=== PATIENT | female | born 1935 | race Caucasian/White ===

== ENCOUNTER 2019-10-12 08:53 | Outpatient (CLI) | payer MEDICARE, OTHER, SELFPAY ==
[2019-10-07 11:28] VITALS: BMI 39.6
[2019-10-12] VITALS (8 sets, daily range): BP systolic 158–180; BP diastolic 66–93; PULSE 65–76; RESP 20; O2SAT 95
--- NOTE | ~2019-10-12 | CT_ITS ---
EXAMINATION: 1. XR myelogram spine lumbosacral 2. CT lumbar spine w con DATE: 10/12/2019 10:45 INDICATION: Lumbar radiculopathy. TECHNIQUE: The procedure including the risks, benefits, and alternatives was discussed with the patie nt. Risks discussed included spinal headache, cerebrospinal fluid leak, bleeding, and infection. The patient understood the risks and agreed to proceed. A timeout was performed to verify the patient' s name, date of , and procedure to be performed. The skin overlying the L2-L3 level was prepped and draped in usual sterile fashion. Subcutaneous 1% lidocaine was used for local anesthesia. A 22 gauge spinal needle was advanced under fluoroscopic guidance. 17 mL Omnipaque 180 was injected. The needle was removed and the entry site was cleaned and dressed. There were no immediate complications . Fluoroscopy exposure time was 0.3 minutes. The total number of images was 7. Computed tomography (C T) of the lumbar spine was performed without intravenous contrast. Automated exposure control and ite rative reconstruction technique were employed. The dose-length product was 974.64 mGy-cm. COMPARISON: lumbar spine CT 01/25/19 FINDINGS: LUMBAR MYELOGRAM: Real-time fluoroscopy demonstrates the needle at the L2-L3 level. There is indentat ion of the thecal sac at multiple levels which will be described in more detail on the postmyelogram CT. POSTMYELOGRAM LUMBAR SPINE CT: There is 3 degrees levocurvature of lower lumbar spine. Vertebral body heights are normal. There is a benign bone island in left L2 transverse process. There is mildly dec reased disc height at T12-L1, moderately decreased disc height at L1-L2 and L2-L3, severely decreased disc height at L3-L4, moderately decreased disc height at L4-L5, and severely decreased disc height at L5-S1. The distal spinal cord morphology is normal. The conus medullaris is at L1. The following d isc levels are specifically discussed: L1-L2: The disc is bulging. There is mild right and moderate left facet joint osteoarthritis. There i s mild bilateral neural foraminal stenosis. There is mild central canal stenosis. L2-L3: The disc is bulging. There is no facet joint osteoarthritis. There is mild bilateral neural fo raminal stenosis. There is mild central canal stenosis. L3-L4: The disc is bulging. There is mild bilateral facet joint osteoarthritis. There is mild bilater al neural foraminal stenosis. There is mild central canal stenosis. L4-L5: The disc is bulging. There is moderate right and severe left facet joint osteoarthritis. There is mild bilateral neural foraminal stenosis. There is mild central canal stenosis. L5-S1: The disc is bulging. There is severe bilateral facet joint osteoarthritis. There is mild right and moderate left neural foraminal stenosis. There is mild central canal stenosis. IMPRESSION: 1. Severe lumbar spondylosis, stable from 01/25/2019. Reviewed, dictated and finalized at location A. NTORY ADMINISTRATOR IMPRESSION: 1. Severe lumbar spondylosis, stable from 01/25/2019.
[2019-10-12 09:17] LABS: Mean Platelet Volume 9.1 fl (7.4-10.4); Platelet Count Result 259 k/mm3 (150-375)
[2019-10-12 09:28] LABS: Prothrombin Time 12.5 Seconds (11.1-14.7)
--- NOTE | 2019-10-12 13:15 | SUR.PHASEII ---
1300: Dr. Rubin contacted and patient is good to d/c. Family requested a disc and report to give to ordering physician so I am just waiting for radiology to bring that to outpatient.
== END 2019-10-12 08:54 | disposition home or self-care (01) ==
PROVIDERS: Radiology Diagnostic Radiology; PCP Nurse Practitioner Family; Visit Provider Orthopaedic Surgery
DX: M47.26 Other spondylosis with radiculopathy, lumbar region (principal)
CPT/HCPCS: 36415; 62304; 72132; 85049; 85610; Q9965

== ENCOUNTER 2021-08-15 10:06 | Outpatient (CLI) | payer MEDICARE, OTHER, SELFPAY ==
--- NOTE | ~2021-08-15 | US_ITS ---
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 COMPARISON: None. FINDINGS: The right kidney measures 10.3 x 5.4 x 4.7 cm. 2.0 cm anechoic cyst at the mid right kidney. The left kidney measures 9.9 x 4.3 x 4.1 cm. The kidneys demonstrate normal echogenicity. There is no hydrone phrosis in either kidney. No stones identified. The bladder is normal. IMPRESSION: 1. 2 cm right renal cyst. Otherwise normal kidneys without hydronephrosis. Reviewed, dictated and finalized at location B. RDS MANAGEMENT SPECIALIST
== END 2021-08-15 10:07 | disposition home or self-care (01) ==
LOC: ANHIMG 10:11
PROVIDERS: PCP Nurse Practitioner Family; Visit Provider Internal Medicine Nephrology
DX: N18.32 Chronic kidney disease, stage 3b (principal); R80.9 Proteinuria, unspecified; N28.1 Cyst of kidney, acquired
CPT/HCPCS: 76775

== ENCOUNTER 2022-03-13 15:03 | Outpatient (CLI) | payer MEDICARE, OTHER, SELFPAY ==
--- NOTE | ~2022-03-13 | US_ITS ---
EXAMINATION: US thyroid DATE: 03/13/2022 15:32 INDICATION: Enlarged thyroid TECHNIQUE: Multiple ultrasound images of the thyroid were obtained. COMPARISON: None. FINDINGS: The right thyroid lobe measures 4.0 x 1.1 x 1.8 cm. The left thyroid lobe measures 2.5 x 1.1 x 1.4 c m. There are 4 subcentimeter anechoic cystic nodules (TI-RADS 1, benign, no FNA recommended) at the right thyroid lobe, the largest 2 with echogenic foci with comet tailing consistent with atelectasis with inspissated colloid. There is normal echotexture, echogenicity and vascular flow throughout the thyroid gland. IMPRESSION: 1. A few likely benign subcentimeter TI-RADS 1 nodules in the right thyroid likely representing collo id cyst. Reviewed, dictated and finalized at location A. IMPRESSION: 1. A few likely benign subcentimeter TI-RADS 1 nodules in the right thyroid lik iram representing colloid cyst.
== END 2022-03-13 15:04 | disposition home or self-care (01) ==
PROVIDERS: PCP Nurse Practitioner Family; Visit Provider Nurse Practitioner Family
DX: E04.2 Nontoxic multinodular goiter (principal)
CPT/HCPCS: 76536

== ENCOUNTER 2022-07-24 15:39 | Outpatient (CLI) | payer MEDICARE, OTHER, SELFPAY ==
[2022-07-24 15:57] LABS: Basophils Absolute Auto 0.1 K/mm3 (0.0-0.1); Basophils Percent Auto 0.8 % (0.2-1.2); Eosinophils Absolute Auto 0.2 K/mm3 (0-0.3); Eosinophils Percent Auto 1.5 % (0-4.4); Hematocrit 40.1 % (37.0-47.0); Hemoglobin 12.8 g/dL (12.0-15.0); Immature Granulocyte Absolute 0.05 K/mm3 (0.00-0.031); Immature Granulocyte Percent A 0.5 % (0-0.5); Lymphocytes Absolute Auto 1.51 K/mm3 (0.9-3.2); Lymphocytes Percent Auto 13.8 % (18.3-44.2); Mean Corpuscular HGB Conc 31.9 g/dl (32-36); Mean Corpuscular Hemoglobin 28.8 pg (26-34); Mean Corpuscular Volume 90.1 fl (80-100); Mean Platelet Volume 8.8 fl (7.4-10.4); Monocytes Absolute Auto 0.7 K/mm3 (0.1-0.6); Monocytes Percent Auto 6.4 % (2.6-8.5); Neutrophils Absolute Auto 8.4 K/mm3 (1.3-6.7); Platelet Count Result 255 k/mm3 (150-375); Red Blood Count 4.45 M/mm3 (4.2-5.4); Red Cell Distribution Width 14.7 % (11.5-14.5); White Blood Count 10.9 K/mm3 (4.5-10.0)
[2022-07-24 16:40] LABS: Alanine Aminotransferase 24 U/L (6-35); Albumin Level 4.1 g/dL (3.5-5.1); Alkaline Phosphatase 131 U/L (38-126); Anion Gap 6 mmol/L (8-16); Aspartate Amino Transferase 42 U/L (14-36); Bilirubin,Total 0.3 mg/dL (0.2-1.3); Blood Urea Nitrogen 28 mg/dL (7-17); Calcium 8.7 mg/dL (8.4-10.2); Carbon Dioxide 33 mmol/L (22-30); Chloride 98 mmol/L (98-107); Estimated Glomerular Filt Rate 33; Glucose 120 mg/dL (65-110); Potassium 4.1 mmol/L (3.4-5.0); Sodium 137 mmol/L (137-145)
[2022-07-24 16:42] LABS: Immunoglobulin A 91 mg/dL (70-400); Immunoglobulin G 1100 mg/dL (700-1600); Immunoglobulin M 155 mg/dL (40-230)
[2022-07-27 12:53] LABS: Abnormal Protein Band 1 0.7 g/dL; Albumin 3.6 g/dL (3.8-4.8); Alpha 1 Globulin 0.4 g/dL (0.2-0.3); Alpha 2 Globulin 0.9 g/dL (0.5-0.9); Beta 1 Globulin 0.5 g/dL (0.4-0.6); Gamma Globulin 1.1 g/dL (0.8-1.7); Protein, Total 6.8 g/dL (6.1-8.1)
[2022-07-28 16:21] LABS: Kappa\\Lambda Light Chains 1.22 (0.26-1.65); Lambda Light Chain 27.8 mg/L (5.7-26.3)
== END 2022-07-24 15:40 | disposition home or self-care (01) ==
LOC: ANHLAB 15:41
PROVIDERS: PCP Nurse Practitioner Family; Visit Provider Internal Medicine Hematology & Oncology
DX: D47.2 Monoclonal gammopathy (principal)
CPT/HCPCS: 36415; 80053; 82784; 83883; 84155; 84165; 85025

== ENCOUNTER 2023-01-19 15:32 | Emergency (ER) | payer MEDICARE, OTHER, SELFPAY ==
--- NOTE | ~2023-01-19 | CT_ITS ---
EXAMINATION: CT brain wo con DATE: 01/19/2023 16:43 INDICATION: Dizziness, blurred vision . TECHNIQUE: Computed tomography (CT) of the head was performed without intravenous contrast. The mA wa s adjusted according to patient size. Iterative reconstruction technique was employed. The dose-lengt h product was 605.33 mGy-cm. COMPARISON: None. FINDINGS: No acute intracranial hemorrhage or extra-axial fluid collection. No hydrocephalus, mass, or herniation. No acute ischemic infarct. Unremarkable dural venous sinus attenuation. No acute osseous abnormality. The aerated spaces are clear. Mild atrophy and chronic white matter change. Atherosclerotic intracranial calcification. Bilateral l ens replacements. 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 IMPRESSION: No acute intracranial process. Reviewed, dictated and finalized at location K.
[2023-01-19 15:42] VITALS: BP 150/60; PULSE 78; RESP 16; TEMP 36.5; O2SAT 99
[2023-01-19 15:49] VITALS: PULSE 79; RESP 18; O2SAT 100
--- NOTE | 2023-01-19 15:49 | ECG_ITS ---
Measurements Intervals [place] Rate: 79 P: 70 GA: 167 QRS: 28 QRSD: 174 T: 86 QT: 422 QTc: 486 Interpretive Statements ELECTRONIC VENTRICULAR PACEMAKER NO FURTHER INTERPRETATION POSSIBLE COMPARED TO ECG 02/04/2019 09:14:29 NO SIGNIFICANT CHANGES Electronically Signed On 01-19-2023 17:18:12 CDT by Nabor Graham M.D.
[2023-01-19 16:07] LABS: Basophils Absolute Auto 0.1 K/mm3 (0.0-0.1); Basophils Percent Auto 0.6 % (0.2-1.2); Eosinophils Absolute Auto 0.2 K/mm3 (0-0.3); Eosinophils Percent Auto 1.2 % (0-4.4); Hemoglobin 12.7 g/dL (12.0-15.0); Immature Granulocyte Absolute 0.07 K/mm3 (0.00-0.031); Immature Granulocyte Percent A 0.5 % (0-0.5); Lymphocytes Absolute Auto 1.86 K/mm3 (0.9-3.2); Lymphocytes Percent Auto 13.8 % (18.3-44.2); Mean Corpuscular HGB Conc 31.8 g/dl (32-36); Mean Corpuscular Hemoglobin 29.1 pg (26-34); Mean Corpuscular Volume 91.5 fl (80-100); Monocytes Absolute Auto 0.7 K/mm3 (0.1-0.6); Monocytes Percent Auto 5.4 % (2.6-8.5); Neutrophils Absolute Auto 10.6 K/mm3 (1.3-6.7); Neutrophils Percent Auto 78.5 % (45.5-73.1); Platelet Count Result 247 k/mm3 (150-375); Red Blood Count 4.37 M/mm3 (4.2-5.4); Red Cell Distribution Width 15.3 % (11.5-14.5); White Blood Count 13.5 K/mm3 (4.5-10.0)
[2023-01-19 16:20] LABS: Alanine Aminotransferase 27 U/L (6-35); Albumin Level 3.8 g/dL (3.5-5.1); Alkaline Phosphatase 110 U/L (38-126); Anion Gap 7 mmol/L (8-16); Aspartate Amino Transferase 25 U/L (14-36); Bilirubin,Total 0.5 mg/dL (0.2-1.3); Blood Urea Nitrogen 50 mg/dL (7-17); Calcium 8.6 mg/dL (8.4-10.2); Carbon Dioxide 28 mmol/L (22-30); Chloride 102 mmol/L (98-107); Estimated Glomerular Filt Rate 42; Glucose 118 mg/dL (65-110); Potassium 3.6 mmol/L (3.4-5.0); Sodium 137 mmol/L (137-145)
[2023-01-19 16:22] VITALS: PULSE 73
[2023-01-19 16:57] LABS: NT Pro B Type Natriuretic Pept 405 pg/mL (19.9-100)
[2023-01-19] MEDS: SODIUM CHLORIDE 0.9% IV 1,000 ML 150 ML IV CONT (17:18)
[2023-01-19 17:19] VITALS: BP 139/59; PULSE 68; RESP 18; O2SAT 96
[2023-01-19 18:46] LABS: Appearance Urine Clear (Clear); Bacteria Urine None Seen /hpf; Bilirubin Urine Negative (Negative); Blood Urine Negative (Negative); Color Urine Yellow (Yellow); Glucose Urine UA Negative (Negative); Ketones Urine Negative (Negative); Leukocyte Esterase Ur Trace LEU/UL (Negative); Nitrate Urine Negative (Negative); Non Pathogenic Casts 0-2; Protein Urine Negative (Negative); RBC Urine 0-2 /hpf (0-2); Specific Grav Ur 1.009 (1.001-1.035); Squamous Epithelial Cell Urine None seen /hpf (Few); Urobilinogen Urine 0.2 mg/dL (<2.0); WBC Urine 0-5 /hpf
[2023-01-19 19:01] LABS: Add Urine Microscopic? YES
--- NOTE | 2023-01-19 19:21 | ED.GENADULT ---
HPI - General Adult General Chief complaint: Weakness Stated complaint: weak/congestion Time Seen by Provider: 01/19/23 15:56 Source: patient and family Mode of arrival: wheelchair Limitations: no limitations History of Present Illness HPI narrative: 87-year-old with a history of hypertension, IBS, DJD, s/p pacemaker , DM , CKD here with complaints of tingling sensation in both arms associated with nausea, high heart rate and low blood pressure on and off since yesterday. Patient states that her face was flushed and she felt weird lasted for few minutes happened again this morning. She denied any chest pain or shortness of breath. She also states she had blurry vision. Has occasional history of anxiety Onset (ago): day(s) (2) Severity: moderate Pain Consistency: now resolved Exacerbating factors: none Associated symptoms: denies other symptoms Related Data Home Medications Medication Instructions Recorded Confirmed acetazolamide 250 mg tablet 250 mg PO DAILY 10/07/19 10/07/22 amlodipine 5 mg tablet 5 mg PO DAILY 10/07/19 10/07/22 aspirin 81 mg tablet,delayed 81 mg PO DAILY 10/07/19 10/07/22 release lidocaine HCl 4 % topical cream 1 applic topical QID PRN Pain 10/07/19 10/07/22 (Aspercreme (lidocaine HCl)) lisinopril 5 mg tablet 5 mg PO DAILY 10/07/19 10/07/22 nebivolol 10 mg tablet (Bystolic) 10 mg PO DAILY 10/07/19 10/07/22 pravastatin 40 mg tablet 40 mg PO DAILY 10/07/19 10/07/22 metformin 500 mg tablet 500 mg PO ONCE 10/07/22 10/07/22 Allergies Allergy/AdvReac Type Severity Reaction Status Date / Time soy Allergy Unknown Diarrhea Verified 01/19/23 16:24 Review of Systems Review of Systems: All systems reviewed & are unremarkable except as noted in HPI and below Constitutional: Constitutional: Reports no additional constitutional complaints Eyes: Eyes: Reports no additional eye complaints ENT: Reports system reviewed and no additional complaints, except as documented Cardiovascular: Cardiovascular: Reports no additional cardiovascular complaints Respiratory: Respiratory: Reports no additional respiratory complaints Gastrointestinal: Gastrointestinal: Reports no additional gastrointestinal complaints Musculoskeletal: Musculoskeletal: Reports no additional musculoskeletal complaints Integumentary/Breasts: Skin/Breast: Reports system reviewed and no additional complaints, except as docu PMFSH Past Medical History Medical History CHF (congestive heart failure) Chronic Kidney Disease Diabetes Diabetic neuropathy DJD (degenerative joint disease) GERD (gastroesophageal reflux disease) Hyperlipidemia Hypertension Irritable bowel syndrome Pacemaker Surgical History Surgical History History of permanent cardiac pacemaker placement Family History Family History Father Cancer Mother Hypertension Other Family history of arthritis Social History Social History Smoking status: Never smoker Second hand tobacco smoke exposure: Yes Alcohol intake: never Substance use: never Lack of Transportation: No Lack of Food: Never True Current Housing: I Have Housing Concerned About Future Housing: No Difficulty Paying Gas/Electric Bills: No Difficulty Paying for Meds: No Currently Unemployed: No Education: High School Diploma/GED Difficulty w/ Childcare or Family Care: No Gender identity (if verbalized by the patient): Female Exam Narrative: GENERAL: Well-appearing, well-nourished, and in no acute distress. HEAD: Normocephalic, atraumatic. EYES: PERRLA and EOMI. NECK: Supple. CHEST: Clear to auscultation. No respiratory distress. HEART: Regular rate and rhythm. No murmur heard. Normal peripheral pulses. ABDOMEN: Soft, nontender, nondistended, normal active
[2023-01-19 20:13] VITALS: BP 126/45; PULSE 67; RESP 17; O2SAT 99
== END 2023-01-19 20:17 | disposition home or self-care (01) ==
PROVIDERS: Emergency Medicine; Emergency Provider Family Medicine; PCP Nurse Practitioner Family
DX: R53.1 Weakness (principal); F41.9 Anxiety disorder, unspecified; E11.22 Type 2 diabetes mellitus with diabetic chronic kidney disease; I13.0 Hypertensive heart and chronic kidney disease with heart failure and stage 1 through stage 4 chronic kidney disease, or unspecified chronic kidney disease; N18.9 Chronic kidney disease, unspecified; I50.9 Heart failure, unspecified; E11.40 Type 2 diabetes mellitus with diabetic neuropathy, unspecified; E78.5 Hyperlipidemia, unspecified; K58.9 Irritable bowel syndrome, unspecified; Z95.0 Presence of cardiac pacemaker; Z77.22 Contact with and (suspected) exposure to environmental tobacco smoke (acute) (chronic); Z79.82 Long term (current) use of aspirin; Z79.84 Long term (current) use of oral hypoglycemic drugs
CPT/HCPCS: 36415; 70450; 80053; 81001; 83880; 85025; 93005; 96360; 96361; 99284; J7030

== ENCOUNTER 2023-03-09 12:29 | Emergency (ER) | payer MEDICARE, OTHER, SELFPAY ==
[2023-03-09] VITALS (12 sets, daily range): BP systolic 142–159; BP diastolic 69–94; PULSE 62–80; RESP 15–19; TEMP 36.5; O2SAT 88–100
[2023-03-09 13:51] LABS: Appearance Urine Clear (Clear); Bilirubin Urine Negative (Negative); Blood Urine Negative (Negative); Color Urine Yellow (Yellow); Glucose Urine UA Negative (Negative); Ketones Urine Negative (Negative); Leukocyte Esterase Ur Negative LEU/UL (Negative); Nitrate Urine Negative (Negative); Protein Urine Negative (Negative); Specific Grav Ur 1.006 (1.001-1.035); Urobilinogen Urine 0.2 mg/dL (<2.0)
[2023-03-09 14:02] LABS: Add Urine Microscopic? NO
[2023-03-09 14:07] LABS: Basophils Absolute Auto 0.1 K/mm3 (0.0-0.1); Basophils Percent Auto 0.8 % (0.2-1.2); Eosinophils Absolute Auto 0.2 K/mm3 (0-0.3); Eosinophils Percent Auto 1.4 % (0-4.4); Hemoglobin 12.2 g/dL (12.0-15.0); Immature Granulocyte Absolute 0.05 K/mm3 (0.00-0.031); Immature Granulocyte Percent A 0.4 % (0-0.5); Lymphocytes Absolute Auto 1.52 K/mm3 (0.9-3.2); Lymphocytes Percent Auto 12.6 % (18.3-44.2); Mean Corpuscular HGB Conc 31.3 g/dl (32-36); Mean Corpuscular Hemoglobin 29.1 pg (26-34); Mean Corpuscular Volume 93.1 fl (80-100); Mean Platelet Volume 9.4 fl (7.4-10.4); Monocytes Absolute Auto 0.6 K/mm3 (0.1-0.6); Monocytes Percent Auto 4.7 % (2.6-8.5); Neutrophils Absolute Auto 9.7 K/mm3 (1.3-6.7); Neutrophils Percent Auto 80.1 % (45.5-73.1); Platelet Count Result 271 k/mm3 (150-375); Red Blood Count 4.19 M/mm3 (4.2-5.4); Red Cell Distribution Width 15.6 % (11.5-14.5); White Blood Count 12.1 K/mm3 (4.5-10.0)
[2023-03-09 14:24] LABS: Alanine Aminotransferase 19 U/L (6-35); Albumin Level 3.6 g/dL (3.5-5.1); Alkaline Phosphatase 110 U/L (38-126); Anion Gap 6 mmol/L (8-16); Aspartate Amino Transferase 20 U/L (14-36); Bilirubin,Total 0.4 mg/dL (0.2-1.3); Blood Urea Nitrogen 49 mg/dL (7-17); Calcium 8.5 mg/dL (8.4-10.2); Carbon Dioxide 26 mmol/L (22-30); Chloride 102 mmol/L (98-107); Estimated Glomerular Filt Rate 36; Glucose 208 mg/dL (65-110); Lipase 92 U/L (23-300); Potassium 4.2 mmol/L (3.4-5.0); Sodium 134 mmol/L (137-145)
--- NOTE | 2023-03-09 16:25 | ECG_ITS ---
Measurements Intervals [place] Rate: 65 P: LA: 0 QRS: 73 QRSD: 174 T: 44 QT: 460 QTc: 479 Interpretive Statements ELECTRONIC VENTRICULAR PACEMAKER NO FURTHER INTERPRETATION IS POSSIBLE ATYPICAL ECG COMPARED TO ECG 01/19/2023 15:50:51 NO SIGNIFICANT CHANGES Electronically Signed On 03-09-2023 16:43:35 CDT by Bart Gómez D.O.
--- NOTE | 2023-03-09 17:00 | ED.GENADULT ---
HPI - General Adult General Chief complaint: Recheck/Abnormal Lab/Rx Stated complaint: LOW BP, N/V Time Seen by Provider: 03/09/23 15:31 History of Present Illness HPI narrative: Patient is an 87-year-old female who presents ER with lightheadedness. Began 2 days ago while she was at rest. She noted that her blood pressure was running in the 80s systolic on multiple blood pressure readings. Same occurred a day later. She discussed this with her daughter today and came in for further evaluation. Patient has had no falls. No chest pain or chest pressure. No fevers or chills or sweats. She does have a pacemaker and is currently being evaluated to have the battery switched out but is not yet met the critical threshold. Patient has decreased her antihypertensive medications on her own and is only taking her Bystolic at this time. Related Data Home Medications Medication Instructions Recorded Confirmed acetazolamide 250 mg tablet 250 mg PO DAILY 10/07/19 02/03/23 amlodipine 5 mg tablet 5 mg PO DAILY 10/07/19 02/03/23 aspirin 81 mg tablet,delayed 81 mg PO DAILY 10/07/19 02/03/23 release lidocaine HCl 4 % topical cream 1 applic topical QID PRN Pain 10/07/19 02/03/23 (Aspercreme (lidocaine HCl)) lisinopril 5 mg tablet 5 mg PO DAILY 10/07/19 02/03/23 nebivolol 10 mg tablet (Bystolic) 10 mg PO DAILY 10/07/19 02/03/23 pravastatin 40 mg tablet 40 mg PO DAILY 10/07/19 02/03/23 metformin 500 mg tablet 500 mg PO ONCE 10/07/22 02/03/23 Allergies Allergy/AdvReac Type Severity Reaction Status Date / Time soy Allergy Unknown Diarrhea Verified 03/09/23 16:05 Review of Systems Review of Systems: All systems reviewed & are unremarkable except as noted in HPI and below Constitutional: Constitutional: Denies chills, Denies fatigue and Denies fever(s) Cardiovascular: Cardiovascular: Denies chest pain, Denies rapid heart rate and Denies radiating jaw, neck or arm pain Respiratory: Respiratory: Denies cough and Denies dyspnea Gastrointestinal: Gastrointestinal: Denies nausea and Denies vomiting Neurologic: Reports dizziness, Denies syncope, Denies focal weakness and Denies numbness FOR[facility]LY [facility], [facility] Past Medical History Medical History CHF (congestive heart failure) Chronic Kidney Disease Diabetes Diabetic neuropathy DJD (degenerative joint disease) GERD (gastroesophageal reflux disease) Hyperlipidemia Hypertension Irritable bowel syndrome Pacemaker Surgical History Surgical History History of permanent cardiac pacemaker placement Family History Family History Father Cancer Mother Hypertension Other Family history of arthritis Social History Social History Smoking status: Never smoker Second hand tobacco smoke exposure: Yes Alcohol intake: never Substance use: never Lack of Transportation: No Lack of Food: Never True Current Housing: I Have Housing Concerned About Future Housing: No Difficulty Paying Gas/Electric Bills: No Difficulty Paying for Meds: No Currently Unemployed: No Education: High School Diploma/GED Difficulty w/ Childcare or Family Care: No Gender identity (if verbalized by the patient): Female Exam Narrative: GENERAL: Well-appearing, well-nourished, and in no acute distress. HEAD: Normocephalic, atraumatic. ENT: Mucous membranes moist. CHEST: Clear to auscultation. No respiratory distress. HEART: Regular rate and rhythm. Normal peripheral pulses. ABDOMEN: Soft, nontender, nondistended. EXTREMITIES: Normal range of motion. No edema. SKIN: Warm, dry, no rash. NEURO: Alert and oriented x3. PSYCH: Normal mood and affect. Course Course Emergency Course: Pacemaker interrogated. Patient reached RENITA 2 days ago according to [employer] and only has 2 to 3 months
== END 2023-03-09 17:28 | disposition home or self-care (01) ==
PROVIDERS: Emergency Medicine; Emergency Provider Emergency Medicine; PCP Nurse Practitioner Family
DX: Z01.30 Encounter for examination of blood pressure without abnormal findings (principal); Z45.018 Encounter for adjustment and management of other part of cardiac pacemaker; I13.0 Hypertensive heart and chronic kidney disease with heart failure and stage 1 through stage 4 chronic kidney disease, or unspecified chronic kidney disease; I50.9 Heart failure, unspecified; E11.22 Type 2 diabetes mellitus with diabetic chronic kidney disease; N18.9 Chronic kidney disease, unspecified; E11.40 Type 2 diabetes mellitus with diabetic neuropathy, unspecified; E78.5 Hyperlipidemia, unspecified; K58.9 Irritable bowel syndrome, unspecified; Z79.84 Long term (current) use of oral hypoglycemic drugs; Z79.82 Long term (current) use of aspirin; T46.5X6A Underdosing of other antihypertensive drugs, initial encounter; Z91.128 Patient's intentional underdosing of medication regimen for other reason
CPT/HCPCS: 36415; 80053; 81003; 83690; 85025; 93005; 99283

== ENCOUNTER 2023-03-12 01:04 | Day surgery (SDC) | payer MEDICARE, OTHER, SELFPAY ==
[2023-03-11 15:41] VITALS: BMI 39.8
[2023-03-12] VITALS (9 sets, daily range): BP systolic 121–187; BP diastolic 60–88; PULSE 62–93; RESP 13–20; TEMP 36.5; O2SAT 98–100; BMI 40.5
--- NOTE | ~2023-03-12 | CT_ITS ---
EXAMINATION: CT abdomen pelvis wo con DATE: 03/12/2023 15:05 INDICATION: Hypotension. TECHNIQUE: Computed tomography (CT) of the abdomen and pelvis was performed without intravenous contr ast. Automated exposure control and iterative reconstruction technique were employed. The dose-length product was 1249.77 mGy-cm. COMPARISON: None. FINDINGS: The visualized portions of the lung bases are clear without pneumonia or pleural effusion. The heart size is normal. There are coronary artery calcifications. No pericardial effusion. There ar e pacer wires in right atrium and right ventricle. Calcifications in the liver and spleen are consist ent with old granulomatous disease. There are cysts in the liver measuring up to 3.2 cm. There are ch anges of cholecystectomy. The pancreas, adrenal glands, and kidneys are normal. There is no urolithia sis. There is diverticulosis of the colon without evidence of diverticulitis. There is a right-sided ventral hernia containing a wall of nonobstructed transverse colon. Aortic atherosclerosis is noted. There is a small sliding hiatal hernia. There is an umbilical hernia containing fat. There are no pat hologically enlarged lymph nodes. There is no free intraperitoneal fluid. There is hematoma in anteri or right thigh. There is severe lumbar spondylosis. IMPRESSION: 1. Hematoma in anterior right thigh. The inferior aspect of the hematoma is not included. No retroper itoneal component. 2. Right-sided ventral hernia containing a wall of nonobstructed transverse colon. Reviewed, dictated and finalized at location L. IMPRESSION: 1. Hematoma in anterior right thigh. The inferior aspect of the hematoma is not included. No retroperitoneal component. 2. Right-sided ventral hernia containing a wall of nonobstructed transverse col on.
[2023-03-12 11:06] LABS: Basophils Absolute Auto 0.1 K/mm3 (0.0-0.1); Basophils Percent Auto 0.9 % (0.2-1.2); Eosinophils Absolute Auto 0.2 K/mm3 (0-0.3); Eosinophils Percent Auto 1.5 % (0-4.4); Hematocrit 39.7 % (37.0-47.0); Hemoglobin 12.5 g/dL (12.0-15.0); Immature Granulocyte Absolute 0.05 K/mm3 (0.00-0.031); Immature Granulocyte Percent A 0.4 % (0-0.5); Lymphocytes Absolute Auto 1.56 K/mm3 (0.9-3.2); Lymphocytes Percent Auto 13.4 % (18.3-44.2); Mean Corpuscular HGB Conc 31.5 g/dl (32-36); Mean Corpuscular Hemoglobin 29.4 pg (26-34); Mean Corpuscular Volume 93.4 fl (80-100); Mean Platelet Volume 9.7 fl (7.4-10.4); Monocytes Absolute Auto 0.6 K/mm3 (0.1-0.6); Monocytes Percent Auto 5.2 % (2.6-8.5); Neutrophils Absolute Auto 9.1 K/mm3 (1.3-6.7); Neutrophils Percent Auto 78.6 % (45.5-73.1); Platelet Count Result 295 k/mm3 (150-375); Red Blood Count 4.25 M/mm3 (4.2-5.4); Red Cell Distribution Width 15.7 % (11.5-14.5); White Blood Count 11.6 K/mm3 (4.5-10.0)
[2023-03-12 11:15] LABS: Anion Gap 7 mmol/L (8-16); Blood Urea Nitrogen 41 mg/dL (7-17); Calcium 8.5 mg/dL (8.4-10.2); Carbon Dioxide 27 mmol/L (22-30); Chloride 105 mmol/L (98-107); Estimated Glomerular Filt Rate 33; Glucose 137 mg/dL (65-110); Potassium 4.2 mmol/L (3.4-5.0); Sodium 139 mmol/L (137-145)
[2023-03-12 11:20] LABS: Prothrombin Time 13.7 Seconds (11.1-14.7)
--- NOTE | 2023-03-12 11:43 | PM.IMHP ---
H&P: HPI History of Present Illness Date/Time: 03/12/23 11:43 Chief Complaint: Pacemaker at elective replacement interval Narrative: Irma song is an 87-year-old female followed by Dr. Garcia with history of pacemaker implanted 11 years ago, LBBB and hypertension. Her pacemaker has reached elective replacement interval and she is here for a generator change. She is pacemaker -dependent. She has noted some labile blood pressures recently associated with weakness. Otherwise she is feeling well with no symptoms of infection and has been NPO. Review of Systems Constitutional: Constitutional: Denies fever(s) Eyes: Eyes: Reports blurry vision (Wears glasses) ENT: Denies epistaxis Cardiovascular: Cardiovascular: Denies chest pain, Denies pedal edema, Denies lightheadedness and Denies dyspnea Respiratory: Respiratory: Denies chest congestion and Denies dyspnea Gastrointestinal: Gastrointestinal: Denies abdominal pain and Denies hematochezia Genitourinary: Genitourinary: Denies hematuria Musculoskeletal: Musculoskeletal: Reports no additional musculoskeletal complaints and Reports arthralgias Integumentary/Breasts: Skin/Breast: Reports system reviewed and no additional complaints, except as docu Neurologic: Reports system reviewed and no additional complaints, except as documented, Denies behavioral changes and Reports numbness (Lower extremity neuropathy) Comments: Often uses a wheelchair Psychiatric: Psychiatric: Denies behavioral changes PMFSH Past Medical History Medical History CHF (congestive heart failure) Chronic Kidney Disease Diabetes Diabetic neuropathy DJD (degenerative joint disease) GERD (gastroesophageal reflux disease) Hyperlipidemia Hypertension Irritable bowel syndrome Pacemaker Medtronic pacemaker implanted in 2011, generator change 03/2023 Surgical History Surgical History History of permanent cardiac pacemaker placement Family History Family History Father Cancer Mother Hypertension Other Family history of arthritis Social History Social History Smoking status: Never smoker Second hand tobacco smoke exposure: No Alcohol intake: never Substance use: never Substance use type: does not use Lack of Transportation: No Lack of Food: Never True Current Housing: I Have Housing Concerned About Future Housing: No Difficulty Paying Gas/Electric Bills: No Difficulty Paying for Meds: No Currently Unemployed: No Education: High School Diploma/GED Difficulty w/ Childcare or Family Care: No Living arrangements: with family Gender identity (if verbalized by the patient): Female Spiritual care concerns: No Meds Home Medications and Allergies Home Medications Medication Instructions Recorded Confirmed Type aspirin 81 mg tablet,delayed 81 mg PO DAILY 10/07/19 03/11/23 History release lisinopril 5 mg tablet 5 mg PO DAILY 10/07/19 03/12/23 History nebivolol 10 mg tablet (Bystolic) 5 mg PO DAILY 10/07/19 03/12/23 History pravastatin 40 mg tablet 40 mg PO DAILY 10/07/19 03/11/23 History cetirizine 10 mg tablet 10 mg PO DAILY 03/11/23 03/11/23 History cholecalciferol (vitamin D3) 125 125 mcg PO DAILY 03/11/23 03/11/23 History mcg (5,000 unit) tablet (Vitamin D3) cyanocobalamin (vitamin B-12) 1,000 mcg PO DAILY 03/11/23 03/11/23 History 1,000 mcg tablet furosemide 20 mg tablet 20 mg PO DAILY 03/11/23 03/11/23 History glipizide 5 mg tablet 2.5 mg PO DAILY 03/11/23 03/11/23 History naproxen 500 mg tablet 500 mg PO BID 03/11/23 03/11/23 History pantoprazole 40 mg tablet,delayed 40 mg PO DAILY 03/11/23 03/11/23 History release vit C 250 mg-vit E 90 mg-zinc 40 1 tablet PO DAILY 03/11/23 03/11/23 History mg-copper 1
--- NOTE | 2023-03-12 11:50 | WPDMODSED ---
Moderate Sedation Note-Pt Data Patient Data Diagnosis: Pacemaker at elective replacement interval Present Complaint: A 7-year-old female with a history of hypertension diabetes and chronic kidney disease followed by Dr. Garcia for her pacemaker implanted for sick sinus syndrome in 2011. She is pacemaker-dependent. Pacemaker has reached elective replacement interval and she is here for generator change. Procedure to be performed/Plan: Conscious sedation Temporary transvenous pacemaker placement Pacemaker generator change Allergies Allergy/AdvReac Type Severity Reaction Status Date / Time soy AdvReac Unknown Diarrhea Verified 03/11/23 16:02 adhesive tape AdvReac Rash Verified 03/11/23 16:02 gabapentin AdvReac Depression Verified 03/11/23 16:02 pregabalin AdvReac Depression Verified 03/12/23 10:50 Home Medications Medication Instructions Recorded Confirmed Type aspirin 81 mg tablet,delayed 81 mg PO DAILY 10/07/19 03/11/23 History release lisinopril 5 mg tablet 5 mg PO DAILY 10/07/19 03/12/23 History nebivolol 10 mg tablet (Bystolic) 5 mg PO DAILY 10/07/19 03/12/23 History pravastatin 40 mg tablet 40 mg PO DAILY 10/07/19 03/11/23 History cetirizine 10 mg tablet 10 mg PO DAILY 03/11/23 03/11/23 History cholecalciferol (vitamin D3) 125 125 mcg PO DAILY 03/11/23 03/11/23 History mcg (5,000 unit) tablet (Vitamin D3) cyanocobalamin (vitamin B-12) 1,000 mcg PO DAILY 03/11/23 03/11/23 History 1,000 mcg tablet furosemide 20 mg tablet 20 mg PO DAILY 03/11/23 03/11/23 History glipizide 5 mg tablet 2.5 mg PO DAILY 03/11/23 03/11/23 History naproxen 500 mg tablet 500 mg PO BID 03/11/23 03/11/23 History pantoprazole 40 mg tablet,delayed 40 mg PO DAILY 03/11/23 03/11/23 History release vit C 250 mg-vit E 90 mg-zinc 40 1 tablet PO DAILY 03/11/23 03/11/23 History mg-copper 1 [id number] capsule (PreserVision AREDS-2) Sedation/Anesthesia: No previous sedation/anesthesia problems (including family history). [facility] Past Medical History Medical History CHF (congestive heart failure) Chronic Kidney Disease Diabetes Diabetic neuropathy DJD (degenerative joint disease) GERD (gastroesophageal reflux disease) Hyperlipidemia Hypertension Irritable bowel syndrome Pacemaker [employer] pacemaker implanted in 2011, generator change 03/2023 Surgical History Surgical History History of permanent cardiac pacemaker placement Family History Family History Father Cancer Mother Hypertension Other Family history of arthritis Social History Social History Smoking status: Never smoker Second hand tobacco smoke exposure: No Alcohol intake: never Substance use: never Substance use type: does not use Lack of Transportation: No Lack of Food: Never True Current Housing: I Have Housing Concerned About Future Housing: No Difficulty Paying Gas/Electric Bills: No Difficulty Paying for Meds: No Currently Unemployed: No Education: High School Diploma/GED Difficulty w/ Childcare or Family Care: No Living arrangements: with family Gender identity (if verbalized by the patient): Female Spiritual care concerns: No Mod Sed Physical Exam Physical Exam Pre Procedural Exam: Normal: Appearance (Pleasant, obese), Eyes, Ears, Nose, Neck, Throat, Airway, Lungs, Heart Size, Heart Rate, Heart Rhythm, Neuro Exam, Abdomen and Skin (Pacer incision is well-healed.) and Variation: Extremities (Mild pretibial edema) Hours since solid foods: 12 (hrs) Hours since liquid intake: 12 (hrs) Mallampati Classification: class III and class IV Internal Medicine - PN: Obj Da Vital Signs Vital Signs: Vital Signs - 24 hr 03/12/23 10:55 Temperature 97.7 F Pulse Rate 93 Respirat
--- NOTE | 2023-03-12 14:17 | PM.OP ---
Procedure Note - Brief Procedure Note - Brief Date of procedure: 03/12/23 RENITA Procedure performed: conscious sedation Temporary transvenous pacemaker generator change Surgeon: Lupe Lei MD Description of procedure: uneventful generator change Complications: No immediate complications Condition: Stable Disposition: Observation
--- NOTE | 2023-03-12 14:18 | W.PM.PROC2 ---
Procedure Note - Detailed Date of Procedure 03/12/23 Pre-op Diagnosis RENITA Post-op Diagnosis Other ( status post generator change) Procedure Performed conscious sedation temporary transvenous pacemaker pacemaker pulse generator change Surgeon Lupe Lei MD Anesthesia Local ( conscious sedation) Findings pacemaker dependent complete block Description of Procedure PROCEDURE: Conscious sedation temporary transvenous pacemaker Generator change UNDERLYING RHYTHM: complete heart block, pacer-dependent CONSCIOUS SEDATION: Assessment: The patient has no history of anesthesia problems. The oropharynx is clear. The patient was deemed to be a good candidate for conscious sedation. The patient had continuous hemodynamic and oximetric monitoring during the procedure. Start time: 1337 Completion time: 1404 Total conscious sedation time: 87 Medications: Versed 2 mg, fentanyl 50 mcg IV push Trained observer: finding for him, RN Outcome: The patient tolerated the procedure well with no complications. TEMPORARY TRANSVENOUS PACEMAKER PROCEDURE: after informed consent, the right femoral artery area was prepped and draped in usual fashion. After conscious sedation and using intravascular ultrasound, the right femoral vein was punctured with the [place] venous sheath. Of note, the vein was, for the most of its course posterior to the artery. a balloon tipped transvenous pacemaker was advanced into the right ventricle under fluoroscopic guidance and when suitable sensing and pacing thresholds were obtained the sheath was sutured in place. Temporary pacemaker was turned off until needed later in the procedure. GENERATOR CHANGE PROCEDURE: The Left prepectoral area was prepped and draped in usual fashion. The patient was given a prophylactic antibiotic intravenously with Ancef push. After conscious sedation as described above, the area was anesthetized with 1% lidocaine. A skin incision is made with the Plasma Blade and carried down to the pacing capsule which was also incised. Hemostasis is obtained using the Plasma Blade. The lead/s was/were freed from the underlying capsule and inspected and were found to be intact. The pulse generator was delivered from the pocket. The temporary pacemaker was turned on. The lead/s was/were disconnected from the existing device and reconnected to the new device. A gentle tug could not remove it/them. The temporary pacemaker was turned off. The device and lead/s was/were interrogated and found to be functioning appropriately. The area was copiously irrigated with antibiotic-containing solution. The device was placed in a TyRx pouch and replaced in the pocket. The subcutaneous tissues were closed in a two-layer fashion with interrupted 2 0 Vicryl sutures and the skin was closed in a continuous fashion using 4 0 Vicryl. The area was cleansed, an Aquacel dressing applied. The patient tolerated the procedure well with no complications. Estimated blood loss was negligible. the temporary transvenous pacemaker was removed under fluoroscopic guidance. Later the Venous sheath was removed. There was more bleeding than expected for a venous puncture, and I suspect the artery was punctured inadvertently during the cannulation of the femoral vein. The site was held for 30 minutes to obtain hemostasis. THRESHOLD INFORMATION: Right atrial lead: P-wave sensing 6.9 mV, impedance 342 Ohms, threshold 0.5 volts at 0.4 milliseconds Right ventricular lead: No R-waves to sense, impedance 399 Ohms, threshold 0.75 volts at 0.4 milliseconds PROGRAMMED PARAMETERS: DDDR 60-110 Implants DEVICE INFORMATION: Pulse generator: Medtronic [id number], Serial # [id number] Existing right atrial lead: Medtronic model 4076-45, serial # [id number], implanted 01/12/2012 Existing right ventricular lead: Medtronic model 4076-52, serial #[id number], implanted 01/12/2012 Explanted pulse generato
--- NOTE | 2023-03-12 15:55 | SUR.PHASEII ---
BP dropped in CCL upon transfer to [facility]. pt reported tenderness in right groin. manual pressure held for 30 minutes. notified. 250 NS Bolus ordered. abdominal CT ordered. pt awake and stable otherwise. CT results pending.
== END 2023-03-12 18:15 | disposition home or self-care (01) ==
PROVIDERS: PCP Nurse Practitioner Family; Visit Provider Internal Medicine Cardiovascular Disease
PROC: 0JPT0PZ Removal of Cardiac Rhythm Related Device from Trunk Subcutaneous Tissue and Fascia, Open Approach (ICD-10-PCS; CPT 33228; principal; 2023-03-12 12:00)
DX: Z45.010 Encounter for checking and testing of cardiac pacemaker pulse generator [battery] (principal); I44.2 Atrioventricular block, complete; I13.0 Hypertensive heart and chronic kidney disease with heart failure and stage 1 through stage 4 chronic kidney disease, or unspecified chronic kidney disease; I50.9 Heart failure, unspecified; E11.22 Type 2 diabetes mellitus with diabetic chronic kidney disease; N18.9 Chronic kidney disease, unspecified; E11.40 Type 2 diabetes mellitus with diabetic neuropathy, unspecified; E78.5 Hyperlipidemia, unspecified; K21.9 Gastro-esophageal reflux disease without esophagitis; K58.9 Irritable bowel syndrome, unspecified; Z79.84 Long term (current) use of oral hypoglycemic drugs; Z79.82 Long term (current) use of aspirin
CPT/HCPCS: 33228; 36415; 74176; 80048; 85025; 85610; C1785; J0690; J1644; J2250; J2371; J3010; J7030; J7040; J7050

== ENCOUNTER 2024-01-11 10:22 | Emergency (ER) | payer MEDICARE, OTHER, SELFPAY ==
--- NOTE | ~2024-01-11 | XR_ITS ---
EXAMINATION: XR chest 2V DATE: 01/11/2024 14:02 INDICATION: Epigastric abdominal pain. TECHNIQUE: Frontal and lateral views of the chest were obtained. COMPARISON: Chest 2 views 02/04/2019, CT abdomen and pelvis 03/12/2023 FINDINGS: There is no pneumonia, pleural effusion, or pneumothorax. The heart size is normal. There i s a left chest wall pacer with leads in the right atrium and right ventricle. IMPRESSION: 1. No acute cardiopulmonary disease. Reviewed, dictated and finalized at location A.
[2024-01-11 10:26] VITALS: BP 177/70; PULSE 78; RESP 17; TEMP 36.3; O2SAT 98
--- NOTE | 2024-01-11 13:04 | ECG_ITS ---
[facility] [address] Test Date: 2024-01-11 Pat Name: Zoya Funes Department: Room: Gender: F Goat Driver: [place]LOTA : 1935 Requested By: Osiel Kelley Order Number: [id number] Norma MD: Donald Wilson M.D. Measurements Intervals [place] Rate: 74 P: 71 WV: 191 QRS: -50 QRSD: 163 T: 74 QT: 448 QTc: 499 Interpretive Statements ELECTRONIC VENTRICULAR PACEMAKER SINUS RHYTHM WITH ATRIAL SENSING AND VENTRICULAR PACING ABNORMAL RHYTHM ECG No previous ECG available for comparison Electronically Signed On 01-11-2024 15:01:18 CDT by Donald Wilson M.D.
[2024-01-11] MEDS: hydrALAZINE HCL 20 MG/ML VIAL 10 MG IV PUSH (13:36)
[2024-01-11 13:41] LABS: Basophils Absolute Auto 0.1 K/mm3 (0.0-0.1); Basophils Percent Auto 0.7 % (0.2-1.2); Eosinophils Absolute Auto 0.1 K/mm3 (0-0.3); Eosinophils Percent Auto 1.4 % (0-4.4); Hematocrit 37.4 % (37.0-47.0); Hemoglobin 11.8 g/dL (12.0-15.0); Immature Granulocyte Absolute 0.04 K/mm3 (0.00-0.031); Immature Granulocyte Percent A 0.5 % (0-0.5); Immature Platelet Fraction Pct 1.5 % (0.9-11.2); Lymphocytes Absolute Auto 1.31 K/mm3 (0.9-3.2); Lymphocytes Percent Auto 14.9 % (18.3-44.2); Mean Corpuscular HGB Conc 31.6 g/dl (32-36); Mean Corpuscular Hemoglobin 29.1 pg (26-34); Mean Corpuscular Volume 92.3 fl (80-100); Mean Platelet Volume 9.3 fl (7.4-10.4); Monocytes Absolute Auto 0.5 K/mm3 (0.1-0.6); Neutrophils Absolute Auto 6.7 K/mm3 (1.3-6.7); Neutrophils Percent Auto 76.5 % (45.5-73.1); Platelet Count Result 265 k/mm3 (150-375); Red Blood Count 4.05 M/mm3 (4.2-5.4); Red Cell Distribution Width 14.3 % (11.5-14.5); White Blood Count 8.8 K/mm3 (4.5-10.0)
[2024-01-11 13:52] LABS: Alanine Aminotransferase 16 U/L (6-35); Alkaline Phosphatase 102 U/L (38-126); Anion Gap 7 mmol/L (4-12); Aspartate Amino Transferase 20 U/L (14-36); Bilirubin,Total 0.4 mg/dL (0.2-1.3); Blood Urea Nitrogen 33 mg/dL (7-17); Calcium 8.9 mg/dL (8.4-10.2); Carbon Dioxide 28 mmol/L (22-30); Chloride 104 mmol/L (98-107); Estimated Glomerular Filt Rate 47; Glucose 167 mg/dL (65-110); Lipase 106 U/L (23-300); Sodium 139 mmol/L (137-145)
[2024-01-11 13:56] LABS: Prothrombin Time 13.2 Seconds (11.1-14.7)
[2024-01-11 13:57] LABS: Partial Thromboplastin Time 27.8 Seconds (22.3-36.8)
[2024-01-11 14:02] LABS: Troponin I < 0.012 ng/mL (0.000-0.034)
[2024-01-11 14:07] LABS: Appearance Urine Clear (Clear); Bilirubin Urine Negative (Negative); Blood Urine Negative (Negative); Color Urine Yellow (Yellow); Glucose Urine UA Negative (Negative); Ketones Urine Negative (Negative); Leukocyte Esterase Ur Negative LEU/UL (Negative); Nitrate Urine Negative (Negative); Protein Urine Negative (Negative); Specific Grav Ur 1.009 (1.001-1.035); Urobilinogen Urine 0.2 mg/dL (<2.0)
[2024-01-11 14:10] LABS: Add Urine Microscopic? NO
[2024-01-11 14:31] VITALS: BP 170/91; PULSE 78; RESP 16; TEMP 36.6; O2SAT 99
--- NOTE | 2024-01-11 14:50 | ED.ABDPAIN ---
HPI - Abdominal Pain General Chief Complaint: Abdominal Pain Stated Complaint: multiple complaints Time Seen by Provider: 01/11/24 12:42 History of Present Illness HPI narrative: Patient is a 80-year-old female who presents ER with epigastric pain. Ongoing over last couple days. It is located in upper abdomen causes pressure moving into the chest. Associated with belching. No exertional component. No fevers or chills or sweats. No modification with eating and drinking. Particularly severe this morning that resolved at 11:00 a.m. after arriving at the ER. Related Data Home Medications Medication Instructions Recorded Confirmed aspirin 81 mg tablet,delayed 81 mg PO DAILY 10/07/19 10/06/23 release lisinopril 5 mg tablet 5 mg PO DAILY 10/07/19 10/06/23 nebivolol 10 mg tablet (Bystolic) 5 mg PO DAILY 10/07/19 10/06/23 pravastatin 40 mg tablet 40 mg PO DAILY 10/07/19 10/06/23 cetirizine 10 mg tablet 10 mg PO DAILY 03/11/23 10/06/23 cholecalciferol (vitamin D3) 125 125 mcg PO DAILY 03/11/23 10/06/23 mcg (5,000 unit) tablet (Vitamin D3) cyanocobalamin (vitamin B-12) 1,000 mcg PO DAILY 03/11/23 10/06/23 1,000 mcg tablet furosemide 20 mg tablet 20 mg PO DAILY 03/11/23 10/06/23 glipizide 5 mg tablet 2.5 mg PO DAILY 03/11/23 10/06/23 pantoprazole 40 mg tablet,delayed 40 mg PO DAILY 03/11/23 10/06/23 release vit C 250 mg-vit E 90 mg-zinc 40 1 tablet PO DAILY 03/11/23 10/06/23 mg-copper 1 [id number] capsule (PreserVision AREDS-2) folic acid 1 mg tablet 1 mg PO DAILY 06/02/23 10/06/23 levothyroxine 25 mcg tablet 25 mcg PO DAILY 06/02/23 10/06/23 naproxen 500 mg tablet 500 mg PO .PRN 06/02/23 10/06/23 Allergies Allergy/AdvReac Type Severity Reaction Status Date / Time soy AdvReac Unknown Diarrhea Verified 01/11/24 10:30 adhesive tape AdvReac Rash Verified 01/11/24 10:30 gabapentin AdvReac Depression Verified 01/11/24 10:30 pregabalin AdvReac Depression Verified 01/11/24 10:30 Review of Systems Review of Systems: All systems reviewed & are unremarkable except as noted in HPI and below Constitutional: Constitutional: Reports no additional constitutional complaints ENT: Reports system reviewed and no additional complaints, except as documented Cardiovascular: Cardiovascular: Reports no additional cardiovascular complaints Respiratory: Respiratory: Reports no additional respiratory complaints Gastrointestinal: Gastrointestinal: Reports abdominal pain, Reports bloating, Denies diarrhea, Denies nausea and Denies vomiting Genitourinary: Genitourinary: Reports no additional female genitourinary complaints Musculoskeletal: Musculoskeletal: Reports no additional musculoskeletal complaints [facility] Past Medical History Medical History CHF (congestive heart failure) Chronic Kidney Disease Diabetes Diabetic neuropathy DJD (degenerative joint disease) GERD (gastroesophageal reflux disease) Hyperlipidemia Hypertension Irritable bowel syndrome Pacemaker Medtronic pacemaker implanted in 2011, generator change 03/2023 Surgical History Surgical History History of permanent cardiac pacemaker placement Family History Family History Father Cancer Mother Hypertension Other Family history of arthritis Social History Social History Smoking status: Never smoker Second hand tobacco smoke exposure: No Alcohol intake: never Substance use: never Substance use type: does not use Lack of Transportation: No Lack of Food: Never True Current Housing: I Have Housing Concerned About Future Housing: No Difficulty Paying Gas/Electric Bills: No Difficulty Paying for Meds: No Currently Unemployed: No Education: High School Diploma/GED Difficulty w/ Childcare or Fam
[2024-01-11 15:06] VITALS: PULSE 70; RESP 12; O2SAT 96
[2024-01-11 15:15] VITALS: PULSE 74; RESP 15; O2SAT 98
[2024-01-11] MEDS: BELLADONNA ALK/PHENOB ELIX 10 ML, MAG HYDROX/ALUMINUM HYD/SIMETH 30 ML, LIDOCAINE HCL 2... PO (15:20)
--- NOTE | 2024-01-11 16:05 | PC.NURSE ---
Pt voices improvement with GI cocktail. Pressure gone.
[2024-01-11 16:06] VITALS: BP 168/71; PULSE 74; RESP 16; O2SAT 95
== END 2024-01-11 16:25 | disposition home or self-care (01) ==
PROVIDERS: Emergency Provider Emergency Medicine; PCP Nurse Practitioner Family
DX: K21.9 Gastro-esophageal reflux disease without esophagitis (principal); Z79.82 Long term (current) use of aspirin; I50.9 Heart failure, unspecified; N18.9 Chronic kidney disease, unspecified; E11.22 Type 2 diabetes mellitus with diabetic chronic kidney disease; E78.5 Hyperlipidemia, unspecified; I13.0 Hypertensive heart and chronic kidney disease with heart failure and stage 1 through stage 4 chronic kidney disease, or unspecified chronic kidney disease; Z95.0 Presence of cardiac pacemaker
CPT/HCPCS: 36415; 71046; 80053; 81003; 83690; 84484; 85025; 85055; 85610; 85730; 93005; 96374; 99284; A9270; J0360